=== PATIENT | male | born 1970 | race Caucasian/White ===

== ENCOUNTER 2018-12-10 20:37 | Emergency (ER) | payer MEDICAID, SELFPAY ==
[2018-12-10] VITALS (28 sets, daily range): BP systolic 111–129; BP diastolic 74–89; PULSE 73–101; RESP 10–30; TEMP 37; O2SAT 89–99
--- NOTE | 2018-12-10 20:57 | W.ED.GENAD ---
Discharge Plan Disposition Patient Disposition: AGAINST MEDICAL ADVICE Condition: Improving Discharge Details Chief Complaint: Chest/Rib Clinical Impression: Atypical chest pain, Syncope Primary Care Provider: Gabriele Quesada ED Provider: Alice Child Home Meds and New Rx's Prescriptions: Continued ibuprofen 600 MG tablet 600 mg PO QID PRN PRNQty: 30 RF: 0 acetaminophen [Tylenol] 325 MG tablet 3 tab PO PRNRF: 0 doxycycline hyclate [Doryx] 100 MG tablet,delayed release (DR/EC) 250 mg PO DIRECTED Qty: 14 RF: 0 Discharge Instructions Instructions: Chest Pain (ED), Syncope (ED) Additional Instructions: Call your primary care doctor on Wednesday to schedule a follow-up appointment for reevaluation and for referral for outpatient heart monitor and/or stress test. Drink plenty of fluids and get plenty of rest. Return immediately to the emergency department if you develop any worsening or new concerning symptoms. Discharge Data Discharge Physician: Alice Child Medical Decision Making 47-year-old male with a history of daily alcohol abuse who presents with left-sided chest pain and a syncopal episode that occurred after urination prior to arrival. Still complaining of some left-sided chest pain. Vitals within normal limits. EKG notes a rate of 82, sinus with no acute ST T wave ischemic changes. Patient has tenderness to palpation left anterior chest. He has a history of frequent exertional daily activity. With patient's history of syncope in the setting of chest pain, more concerning for an arrhythmia, however syncope post urination and musculoskeletal chest wall pain appears more clinically possible. Patient appears significantly intoxicated but is able to answer questions. We will do a cardiac work-up including d-dimer and chest x-ray and give a dose of Toradol and reassess. 2320 -- pt is asking to leave. Troponin negative. Alcohol 413. Chest x-ray negative. D-dimer 1147. Discussed that his results noted his d-dimer is elevated. He is now agreeable with plan for CT chest. 0010 --CT chest negative for PE but noted esophagitis. Discussed with patient that would recommend admission overnight for chest pain in setting of syncope but he is declining admission at this time. He does not want to stay for a second troponin either. He was advised of the risks of and disability due to a serious cardiac pathology and he understands the risks. He appears clinically sober in that he is able to repeat these risks back to me. His sister is present at bedside who will be taking patient home. Advised to follow-up with the primary care doctor this week for reevaluation and for referral for an outpatient cardiac monitor technician and/or stress test. Patient was encouraged to return here with any worsening or concerning symptoms. Medical Records Medical records reviewed: Yes I reviewed the patient's medical records. Imaging Data Radiologic Study: Radiologist's impression: XR Chest, 2 Views EXAM DATE/TIME: 12/10/2018 9:39 PM CLINICAL HISTORY: 47 years old, male; Chest pain; Additional info: R/O acute disease TECHNIQUE: Imaging protocol: XR of the chest, 2 views. COMPARISON: CT CHEST ABD PELVIS WITH CONTRAST 10/19/2017 9:29 PM FINDINGS: Lungs: Unremarkable. No consolidation. Pleural space: Unremarkable. No evidence of pneumothorax. Heart/Mediastinum: Unremarkable. Heart size within normal limits for technique. Bones/joints: Old right rib fracture deformities. IMPRESSION: No acute findings. Lab Data Lab results reviewed: Yes I reviewed the patient's lab results. ECG Data Attestation: I personally reviewed and interpreted this ECG (s) as follows: Interpretation: Rate of 82, sinus, no acute ST elevation or depression. TX 186. QTc 420. QRS 94. HPI General Mode of arrival: ambulatory. Date/Time Provider Initiated Documentation: 12/10/18 20:47. Limitations to Documentation: no limitations. Information obtained by: patient. HPI Narrative: Pt is a 47yo M with a history of daily alcohol abuse who presents with chest pain and syncopal episode prior to arrival. Patient states he was drinking alcohol with his friends carlos enrique when he was urinating outside and walked away and developed left-sided chest pain and then passed out. Patient states he remembers his friends been walking him to the car to bring him to the hospital. Patient arrives here with his sister. Patient states when he was walking back to the car with his friends his chest pain was still present. He states it is still currently present and minor but rates it as 7/10. He denies any radiation, arm pain or numbness, shortness of breath, nausea, vomiting or dizziness. Patient cannot state how much alcohol he had this evening but states it was a little. He states he is frequently doing work outside and lifting heavy objects every day. He denies any recent travel, recent surgery, leg pain or swelling. Related Data Home Medications Medication Instructions Recorded Confirmed ibuprofen 600 mg PO QID PRN PRN #30 tab 09/09/15 12/10/18 acetaminophen [Tylenol] 3 tab PO PRN 09/21/16 doxycycline hyclate [Doryx] 250 mg PO DIRECTED #14 tabcr 09/21/16 12/10/18 Previous Rx's Medication Instructions Recorded ibuprofen 600 mg PO QID PRN PRN #30 tab 09/09/15 doxycycline hyclate [Doryx] 250 mg PO DIRECTED #14 tabcr 09/21/16 Allergies Allergy/AdvReac Type Severity Reaction Status Date / Time No Known Allergies Allergy Unverified 12/10/18 20:56 General Stated Complaint: Chest/Rib SARAH: 2 Review of Systems Review of Systems All systems reviewed & are unremarkable except as noted in HPI and below Constitutional Reports as per HPI, Denies chills and Denies fever(s) Eyes Denies blurry vision ENT Denies dizziness, Denies sore throat and Denies throat swelling Cardiovascular Reports chest pain and Denies dyspnea Respiratory Denies cough and Denies dyspnea Gastrointestinal Denies abdominal pain, Denies diarrhea and Denies vomiting Genitourinary Denies hematuria and Denies dysuria Musculoskeletal Denies back pain and Denies numbness Integumentary/Breasts Denies lesions and Denies rash Neurologic Denies dizziness, Denies focal weakness and Denies numbness Allergic/Immunologic Denies throat swelling PFSH Medical History No significant past medical history (Acute) Surgical History No significant past surgical history (Acute) Social History Smoking/Tobacco Use Status: Never Alcohol Intake: current Alcohol Intake frequency: 3 or more drinks per day Drug use: Never Do you feel safe at home: Yes Do you feel safe in your relationship?: Yes Exam Const General: cooperative, healthy appearing and no acute distress HENMT Head: normal to inspection Face and sinus: normal facial exam Eyes General: appearance normal, both eyes and all related structures Pupils: PERRL EOM: EOM intact bilaterally Neck Neck: normal visual inspection and No submandibular swelling Lymphatic: no lymphadenopathy noted Chest Chest: normal inspection of the chest and tenderness Chest/axillae images: 1. Tenderness to palpation without evidence of edema, erythema or ecchymosis, lesions or rash. Resp Effort & Inspection: normal respiratory effort and able to speak in complete sentences Auscultation: clear to auscultation bilaterally Cardio Rate: regular rate Rhythm: regular rhythm GI Inspection: normal to inspection Palpation: soft, not firm, not rigid and nontender Auscultation: normal bowel sounds Male General Exam: Yes normal external exam Skin General skin exam: no rashes or lesions noted Neuro General: alert, awake and oriented x3 Cranial Nerves: CN's II-XI intact bilaterally Cognition: normal cognition Speech: speech normal Motor: muscle tone normal throughout and strength 5/5 throughout Sensory Exam: no sensory deficits noted Extrem General: normal to inspection, full ROM, normal capillary refill, no calf tenderness bilaterally and no edema Psych Appearance: grossly normal Mental Status: mental status grossly normal Speech and Movement: speech and movement normal Affect: normal affect Course Vital Signs Temperature 98.6 F 12/10/18 20:46 Pulse 84 12/10/18 20:46 Respiratory Rate 18 12/10/18 20:46 Pulse Oximetry 99 12/10/18 20:46 Temperature 98.6 F 12/10/18 20:46 Temperature Source Temporal Artery Scan 12/10/18 20:46 Pulse 84 12/10/18 20:46 Respiratory Rate 18 12/10/18 20:46 Blood Pressure Position Supine 12/10/18 20:46 Pulse Oximetry 99 12/10/18 20:46 Oxygen Delivery Method Room Air 12/10/18 20:46 Oxygen Flow Rate 0 12/10/18 20:46 Pain Level 10 12/10/18 20:46
--- NOTE | 2018-12-10 21:21 | DI.RAD_ITS ---
SYMPTOMS/DIAGNOSIS: CHEST PAIN, ? ACUTE DISEASE PA AND LATERAL CHEST: Comparison is made with August,. The heart size is normal. There are old right rib fractures. The lungs appear clear. No infiltrate, effusion or pneumothorax is seen. IMPRESSION: Old right rib fractures. No acute abnormality.
--- NOTE | 2018-12-10 22:00 | DI.VRAD_ITS ---
EXAM: XR Chest, 2 Views EXAM DATE/TIME: 12/10/2018 9:39 PM CLINICAL HISTORY: 47 years old, male; Chest pain; Additional info: R/O acute disease TECHNIQUE: Imaging protocol: XR of the chest, 2 views. COMPARISON: CT CHEST ABD PELVIS WITH CONTRAST 10/19/2017 9:29 PM FINDINGS: Lungs: Unremarkable. No consolidation. Pleural space: Unremarkable. No evidence of pneumothorax. Heart/Mediastinum: Unremarkable. Heart size within normal limits for technique. Bones/joints: Old right rib fracture deformities. IMPRESSION: No acute findings. Dictated and Authenticated by: Gabriele Turner MD. Ordering:APARNA Jenkins MD
[2018-12-10 22:20] LABS: ETHANOL BLOOD 413.1 mg/dL (<3)
[2018-12-10 22:21] LABS: ALT 92 U/L (16-63); AST 124 U/L (15-37); Absolute Basophil Count 0.06 k/cumm (0.0-0.2); Absolute Eosinophil Count 0.03 k/cumm (0.0-0.7); Absolute Lymphocyte Count 1.28 k/cumm (1.2-3.4); Absolute Monocyte Count 0.37 k/cumm (0.11-0.7); Absolute Neutrophil Count 1.43 k/cumm (1.2-6.7); Albumin 4.2 g/dL (3.4-5.0); Alkaline Phosphatase 59 U/L (46-116); Anion Gap 9.8 mmol/L (3-11); BUN 4 mg/dL (7-18); Basophils % 1.9; Bilirubin, Total 0.5 mg/dL (0.2-1.0); CO2 30.2 mmol/L (21.0-32.0); CREATININE 0.81 mg/dL (0.70-1.30); Calcium 8.2 mg/dL (8.5-10.1); Chloride 100 mmol/L (98-107); Eosinophils % 0.9; Glucose 104 mg/dL (70-100); HGB 15.2 g/dL (13.5-17.5); Lymphocytes % 40.4; Mean Corp. HGB Concentration 34.5 g/dL (32.0-36.0); Mean Corpuscular Hemoglobin 31.3 pg (27.0-33.0); Mean Corpuscular Volume 90.7 fL (80-95); Mean Platelet Volume 8.4 fL (8.0-11.0); Monocytes % 11.7; Neutrophils % 45.1; Platelet Count 170 x1000/uL (130-400); Potassium 3.9 mmol/L (3.5-5.1); RBC 4.85 m/cumm (4.50-6.00); RBC Distribution Width 12.4 % (11.8-14.1); Sodium 140 mmol/L (136-145); Total Protein 8.4 g/dL (6.4-8.2); White Blood Cell Count 3.17 k/cumm (4.4-10.8)
[2018-12-10 22:22] LABS: Troponin I < 0.05 ng/mL (0.00-0.06)
[2018-12-10] MEDS: Ketorolac 60 MG/2 ML VIAL IM (22:28)
[2018-12-10 22:52] LABS: D-Dimer 1147 ng/mlFEU (<500)
[2018-12-10 22:54] LABS: Diff Comment Diff Reviewed
[2018-12-10 22:56] LABS: RBC Morphology Normal
--- NOTE | 2018-12-10 23:26 | DI.CT_ITS ---
SYMPTOMS/DIAGNOSIS: LEFT ANTERIOR CHEST PAIN, ELEVATED D-DIMER, ? PE CHEST CT FOR PULMONARY EMBOLISM: CT angiography was performed with multi slice acquisition and multi planar and 3D reconstruction. There is no evidence of pulmonary emboli or aortic dissection. No pleural or pericardial effusions or pneumothorax are seen. The heart size is normal. There are old rib fractures. No acute fractures are identified. There is thickening of the distal esophagus. There is no evidence of perforation or gross evidence of a focal mass. The liver shows extreme fatty infiltration. IMPRESSION: Thickening of the distal esophagus consistent with esophagitis. No evidence of pulmonary emboli.
[2018-12-10] MEDS: Omnipaque 350 MG/ML 100 ML BTL IJ (23:56)
--- NOTE | 2018-12-11 00:02 | DI.VRAD_ITS ---
EXAM: CT Angiography Chest With Contrast EXAM DATE/TIME: 12/10/2018 11:27 PM CLINICAL HISTORY: 47 years old, male; Pain and abnormal findings; Abnormal diagnostic tests; Elevated d-dimer; Left-sided chest pain; Patient HX: Per PT: Left anterior chest pain; Elevated d dimer; Additional info: R/O pe TECHNIQUE: Imaging protocol: Computed tomographic angiography of the chest with intravenous contrast. 3D rendering: MIP reconstructed images were created and reviewed. COMPARISON: CT CHEST ABD PELVIS WITH CONTRAST 10/19/2017 9:29 PM FINDINGS: Pulmonary arteries: Unremarkable. No obvious pulmonary emboli. Aorta: Unremarkable. No aortic aneurysm. No aortic dissection. Lungs: Unremarkable. No consolidation. No masses. No suspicious nodules. Pleural space: Unremarkable. No pneumothorax. No pleural effusion. Heart: Unremarkable. No pericardial effusion. No obvious heart strain. Mediastinum: Wall thickening throughout the distal half of the esophagus. Liver: Liver is diffusely low-attenuation. Lymph nodes: Unremarkable. No enlarged lymph nodes. Bones/joints: Old rib fracture deformities. Soft tissues: Unremarkable. IMPRESSION: Esophagitis. Fatty liver. Dictated and Authenticated by: Gabriele Turner MD. Ordering:APARNA Jenkins MD
[2018-12-11 00:24] VITALS: BP 113/82; PULSE 82; RESP 15; O2SAT 98
== END 2018-12-11 00:18 | disposition left against medical advice (07) ==
PROVIDERS: Emergency Provider Physician Assistant; PCP Internal Medicine
DX: R07.89 Other chest pain (principal); R55 Syncope and collapse; R79.1 Abnormal coagulation profile; F10.220 Alcohol dependence with intoxication, uncomplicated; Y90.8 Blood alcohol level of 240 mg/100 ml or more; X50.0XXA Overexertion from strenuous movement or load, initial encounter
CPT/HCPCS: 36415; 71275; 80053; 93005; 96372; 99285; 71046; 80320; 83735; 84484; 85025; 85379; 93010; 99284; J1885; J3490

== ENCOUNTER 2018-12-19 01:12 | Outpatient (CLI) | payer MEDICAID, SELFPAY | END 2018-12-19 01:32 | PROVIDERS: PCP Internal Medicine; Visit Provider Internal Medicine | DX: R55 Syncope and collapse (principal) | CPT/HCPCS: 93225 ==

== ENCOUNTER 2018-12-21 14:11 | Outpatient (CLI) | payer MEDICAID, SELFPAY ==
--- NOTE | 2018-12-22 05:29 | HOLTER_ITS ---
HOLTER MONITOR DATE OF DICTATION December 21, 2018 STUDY INDICATION Syncope. REQUESTING PROVIDER Not available. FINDINGS The patient was monitored for 2 days and 1 hour. Baseline sinus rhythm. Average heart rate 90 beats per minute, range 68 to 152 beats per minute. No significant ectopy. 3 PVCs and 1 PACs. No VT or SVT. No pauses greater than 3 seconds. No higher degree heart block. No patient events. FINAL INTERPRETATION Normal study. Kris Haile M.D. MATT/leroy T - 12/22/2018
== END 2018-12-21 14:31 ==
PROVIDERS: PCP Internal Medicine; Visit Provider Internal Medicine
DX: R55 Syncope and collapse (principal)
CPT/HCPCS: 93226

== ENCOUNTER 2019-09-11 15:56 | Outpatient (REF) | payer MEDICAID, SELFPAY ==
[2019-09-12 23:57] LABS: COVID-19 RT-PCR Result NEGATIVE (Negative)
== END 2019-09-11 16:16 ==
LOC: NCHCN 15:56
PROVIDERS: PCP Internal Medicine; Visit Provider Nurse Practitioner Family
DX: J06.9 Acute upper respiratory infection, unspecified (principal)
CPT/HCPCS: U0003

== ENCOUNTER 2020-10-01 22:10 | Outpatient (REF) | payer MEDICAID, SELFPAY ==
[2020-10-01 22:02] LABS: HCT 33.4 % (40.0-50.0); HGB 10.3 g/dL (13.5-17.5); MCHC 30.8 % (32.0-36.0); MCV 74.7 fL (80-95); MPV 9.3 fL (8.0-11.0); Platelet Count 228 10^3/uL (130-400); RBC 4.47 10^6/uL (4.36-5.78); RDW 18.9 % (11.8-14.1); RDW-SD 51.1 fL; WBC 5.64 10^3/uL (4.4-10.8)
[2020-10-01 22:14] LABS: ALT 70 U/L (16-63); AST 79 U/L (15-37); Albumin 3.7 g/dL (3.4-5.0); Alkaline Phosphatase 88 U/L (46-116); Anion Gap 9.1 mmol/L (3-11); BUN 6 mg/dL (7-18); Bilirubin, Total 0.4 mg/dL (0.2-1.0); CO2 27.9 mmol/L (21.0-32.0); CREATININE 0.8 mg/dL (0.70-1.30); Calcium 8.9 mg/dL (8.5-10.1); Chloride 97 mmol/L (98-107); Glucose 95 mg/dL (74-106); Potassium 4.6 mmol/L (3.5-5.1); Sodium 134 mmol/L (136-145); Total Protein 8.2 g/dL (6.4-8.2)
[2020-10-01 22:34] LABS: Calculated LDL 85 mg/dL (<100); Cholesterol 164 mg/dL (<200); HDL Cholesterol 71 mg/dL (40-60); Triglyceride 42 mg/dL (<150)
== END 2020-10-01 22:11 | disposition home or self-care (01) ==
LOC: NCHCN 22:10
PROVIDERS: PCP Internal Medicine; Visit Provider Internal Medicine
DX: F10.10 Alcohol abuse, uncomplicated (principal); L71.9 Rosacea, unspecified; Z13.220 Encounter for screening for lipoid disorders
CPT/HCPCS: 80053; 80061; 85027; 85025

== ENCOUNTER 2020-10-07 18:23 | Outpatient (REF) | payer MEDICAID, SELFPAY ==
[2020-10-07 16:38] LABS: Iron 12 ug/dL (65-175); Total Iron Binding Capacity 392 ug/dL (250-450); Transferrin Sat 3 % (20-55)
[2020-10-07 16:57] LABS: Vitamin B12 603 pg/mL (193-986)
== END 2020-10-07 18:24 | disposition home or self-care (01) ==
LOC: NCHCN 18:23
PROVIDERS: PCP Internal Medicine; Visit Provider Internal Medicine
DX: D64.9 Anemia, unspecified (principal); R79.89 Other specified abnormal findings of blood chemistry
CPT/HCPCS: 82607; 83540; 83550

== ENCOUNTER 2020-11-18 03:21 | Outpatient (CLI) | payer MEDICAID, SELFPAY ==
[2020-11-18 13:53] LABS: Source Nasal/Nares
[2020-11-19 15:25] LABS: COVID-19 PCR Negative (Negative)
== END 2020-11-18 03:22 | disposition home or self-care (01) ==
PROVIDERS: PCP Family Medicine; Visit Provider Surgery
DX: Z20.822 Contact with and (suspected) exposure to COVID-19 (principal); Z01.818 Encounter for other preprocedural examination
CPT/HCPCS: 87635

== ENCOUNTER 2020-11-20 06:11 | Day surgery (SDC) | payer MEDICAID, SELFPAY | END 2020-11-20 06:12 | disposition home or self-care (01) | LOC: SUR 06:12 | PROVIDERS: PCP Family Medicine; Visit Provider Surgery | DX: Z53.9 Procedure and treatment not carried out, unspecified reason (principal) ==

== ENCOUNTER 2020-12-02 10:08 | Outpatient (REF) | payer MEDICAID, SELFPAY ==
[2020-12-02 15:24] LABS: HCT 39.9 % (40.0-50.0); HGB 12.8 g/dL (13.5-17.5); MCHC 32.1 % (32.0-36.0); MCV 80.9 fL (80-95); MPV 9.8 fL (8.0-11.0); Platelet Count 166 10^3/uL (130-400); RBC 4.93 10^6/uL (4.36-5.78); RDW-SD 59.3 fL; WBC 8.94 10^3/uL (4.4-10.8)
== END 2020-12-02 10:09 | disposition home or self-care (01) ==
LOC: NCHCN 10:08
PROVIDERS: PCP Family Medicine; Visit Provider Internal Medicine
DX: R19.5 Other fecal abnormalities (principal)
CPT/HCPCS: 85027

== ENCOUNTER 2021-02-25 12:00 | Outpatient (REF) | payer MEDICAID, SELFPAY ==
[2021-02-25 14:43] LABS: HCT 40.4 % (40.0-50.0); HGB 12.9 g/dL (13.5-17.5); MCH 26.8 pg (27.0-33.0); MCHC 31.9 % (32.0-36.0); MCV 83.8 fL (80-95); MPV 9.4 fL (8.0-11.0); Platelet Count 225 10^3/uL (130-400); RBC 4.82 10^6/uL (4.36-5.78); RDW 15.1 % (11.8-14.1); RDW-SD 46.3 fL; WBC 5.15 10^3/uL (4.4-10.8)
[2021-02-25 15:13] LABS: ALT 74 U/L (16-63); AST 97 U/L (15-37); Albumin 3.9 g/dL (3.4-5.0); Alkaline Phosphatase 82 U/L (46-116); Anion Gap 9.5 mmol/L (3-11); BUN 4 mg/dL (7-18); Bilirubin, Total 0.6 mg/dL (0.2-1.0); CO2 28.5 mmol/L (21.0-32.0); CREATININE 0.7 mg/dL (0.70-1.30); Calcium 9.1 mg/dL (8.5-10.1); Chloride 95 mmol/L (98-107); Ferritin 42 ng/mL (26-388); Glucose 91 mg/dL (74-106); Sodium 133 mmol/L (136-145); Total Protein 8.5 g/dL (6.4-8.2)
== END 2021-02-25 12:01 | disposition home or self-care (01) ==
LOC: NCHCN 12:00
PROVIDERS: PCP Family Medicine; Visit Provider Family Medicine
DX: D50.9 Iron deficiency anemia, unspecified (principal); R19.5 Other fecal abnormalities; F10.10 Alcohol abuse, uncomplicated
CPT/HCPCS: 80053; 85027; 82728

== ENCOUNTER 2021-05-24 13:47 | Emergency (ER) | payer MEDICAID, SELFPAY ==
[2021-05-24 13:49] VITALS: BP 131/98; PULSE 83; RESP 16; TEMP 36.6; O2SAT 100
--- NOTE | 2021-05-24 14:01 | DI.RAD_ITS ---
Exam(s) XR HAND LT COMPLETE EXAM: XR HAND LT COMPLETE CLINICAL HISTORY: distal digit laceration likely to the bone. TECHNIQUE: 2D digital imaging was performed of the left hand. Three views were obtained. AP, later al and oblique views were obtained. COMPARISON: No exams were available for comparison FINDINGS: BONES: No acute fracture is present. No bony destructive lesion is seen. JOINTS: No dislocation present. SOFT TISSUE: There is a soft tissue laceration at the anterior lateral aspect of the distal little fi nger. No radiopaque foreign body is seen. IMPRESSION: Soft tissue laceration at the distal aspect of the little finger. No radiopaque foreign body or frac ture. DATA REPOSITORY: RADIATION DOSE DELIVERED:
[2021-05-24] MEDS: Lidocaine 1% Multi-Dose 50 ML VIAL 10 ML IJ (14:17)
--- NOTE | 2021-05-24 14:21 | ED.GENADUL_ITS ---
Discharge Plan Disposition Patient Disposition: HOME Condition: Improving Discharge Details Clinical Impression: Laceration of finger of left hand Primary Care Provider: Dk Lopez ED Provider: Shine Macedo Home Meds and New Rx's Prescriptions: New cephalexin 500 mg capsule 500 mg PO QID 5 Days Qty: 20 0RF Continued pantoprazole 40 mg tablet,delayed release (DR/EC) 40 mg PO DAILY 0RF ferrous gluconate 324 mg (37.5 mg iron) tablet 324 mg PO BID 0RF Discharge Instructions Instructions: Finger Laceration (ED) Medical Decision Making 50-year-old male presented for sustaining lacerations to the fourth and fifth digit of left hand while using a table saw, gaping lacerations distal to the DIP joints, with likely exposed bone palmar aspect of fifth digit, slightly decreased sensation to light touch distal aspect of fifth digit however remaining neurovascular exam intact in all fingers, patient is up-to-date on tetanus shot, pain is controlled, no evidence of foreign body, soaking wound will anesthetize digits, will irrigate and explore wounds, primary closure with Vicryl sutures, patient to be given 1 g of Ancef IV and to be discharged on prophylactic antibiotic and given referral for specialty care follow-up. No evidence of active infection, no evidence of tendon disruption, no evidence of foreign body at this time. Home care instructions and return precautions to be given 15: 09 patient tolerated laceration repair, Ancef as completed, home care instructions and return precautions given. Will be given prophylactic Keflex. Patient will be provided orthopedic follow-up for wound check next week. HPI General Date/Time Provider Initiated Documentation: 05/24/21 14:01 . HPI Narrative: 50-year-old male presents after accidentally lacerating his left fourth and fifth digit with a table saw while building a table, hemostatic, no other injuries, patient endorsed that his tetanus shot is up-to-date Related Data Home Medications Medication Instructions Recorded Confirmed ferrous gluconate 324 mg (37.5 mg 324 mg PO BID tab 10/29/20 11/18/20 iron) tablet pantoprazole 40 mg tablet,delayed 40 mg PO DAILY 10/29/20 05/24/21 release cephalexin 500 mg capsule 500 mg PO QID 5 Days #20 cap 05/24/21 Previous Rx's Medication Instructions Recorded cephalexin 500 mg capsule 500 mg PO QID 5 Days #20 cap 05/24/21 Allergies Allergy/AdvReac Type Severity Reaction Status Date / Time No Known Allergies Allergy Unverified 05/24/21 13:54 General Stated Complaint: Laceration SARAH: 3 Review of Systems Narrative: Review of Systems Constitutional: negative Eyes: negative ENT: negative Cardiovascular: negative Respiratory: negative Gastrointestinal: negative : negative Musculoskeletal: negative Skin: finger lacerations Neurologic: negative Psych: negative PFSH All Active Problems (Updated 05/24/21 @ 15:21 by Shine Macedo MD) Laceration of finger of left hand (Acute) Elevated BP without diagnosis of hypertension (Acute) Acne rosacea (Acute) Alcohol abuse (Chronic) Elevated LFTs (Acute) Heme positive stool (Acute) Iron deficiency anemia (Acute) Esophagitis (Acute) Medical History (Updated 05/24/21 @ 15:21 by Shine Macedo MD) Syncope No recurrence per PCP on 01/03/19 Surgical History No significant past surgical history Social History Smoking/Tobacco Use Status: Never Smoking risk assessment performed?: Yes Alcohol Intake: current Alcohol Intake frequency: 3 or more drinks per day Details: drinks 12 Beers per night Drug use: Never Substance use type: does not use Do you feel safe at home: Yes Do you feel safe in your relationship?: Yes Exam Narrative Exam Narrative: Physical Examination General: alert, awake, cooperative, resting comfortably, no acute distress HEENT: normocephalic, atraumatic; PERRL, EOM intact, conjunctiva normal; no nasal discharge; moist mucous membranes, oral and pharyngeal mucosa normal, tolerating secretions Neck: supple, trachea midline; full ROM Chest: normal to inspection Respiratory: normal respiratory effort, speaking in full sentences, clear to auscultation, no wheezing, rales or rhonchi Cardiac: regular rate, regular rhythm, S1S2 intact, no murmurs rubs or gallops GI: abdomen soft, non-tender, non-distended; no palpable mass or hepatosplenomegaly Skin: Left hand: 1 cm mildly gaping laceration to palmar aspect of fourth digit distal to PIP joint, 2.5 cm gaping laceration distal aspect of digit palmar aspect with likely exposed bone Neuro: AAOx3, normal speech, moving all extremities Extremities: Lacerations noted as per skin section, flexion both proximally and distally in all fingers intact, extension intact, sensation to light touch distal to DIP joint on fifth digit decreased, sensation in proximal fifth digit intact, remaining sensory feels the median radial and ulnar nerve distribution intact, good capillary refill in all fingers, no apparent foreign body, does appear that laceration to fifth digit goes to bone Psych: Appropriate mood and affect Course Vital Signs Vital signs: Vital Signs Temperature 36.6 C 05/24/21 13:49 Pulse 83 05/24/21 13:49 Respiratory Rate 16 05/24/21 13:49 Blood Pressure 131/98 H 05/24/21 13:49 Pulse Oximetry 100 05/24/21 13:49 Temperature 36.6 C 05/24/21 13:49 Temperature Source Skin 05/24/21 13:49 Pulse 83 05/24/21 13:49 Respiratory Rate 16 05/24/21 13:49 Respiratory Effort 05/24/21 13:56 Blood Pressure 131/98 H 05/24/21 13:49 Pulse Oximetry 100 05/24/21 13:49 Oxygen Delivery Method Room Air 05/24/21 13:49 Oxygen Flow Rate 0 05/24/21 13:49
[2021-05-24] MEDS: ceFAZolin 1 GM/50 ML BAG IV (14:27)
[2021-05-24 15:13] VITALS: BP 122/92; PULSE 88; TEMP 36.5; O2SAT 99
--- NOTE | 2021-05-24 15:24 | DI.VRAD_ITS ---
PROCEDURE INFORMATION: Exam: XR Left Hand Exam date and time: 05/24/2021 2:20 PM Age: 50 years old Clinical indication: Injury or trauma; Other: Laceration 4th and 5th digits; Left; Ring finger and little finger TECHNIQUE: Imaging protocol: XR Left hand. Views: 3 or more views. COMPARISON: No relevant prior studies available. FINDINGS: Bones/joints: There is no evidence of acute fracture.There is no evidence of malalignment or dislocation. Soft tissues: Defects in the skin of the distal little finger consistent with laceration. IMPRESSION: 1. There is no evidence of acute fracture.There is no evidence of malalignment or dislocation. 2. Defects in the skin of the distal little finger consistent with laceration. Dictated and Authenticated by: Dulce Shipman MD. Ordering:CHASTITY Riojas MD
--- NOTE | 2021-05-24 15:40 | NUR.NOTE ---
patient's abx sent to [facility] and sister notified of this. patient also requested that ortho notify his sister for his f/u.
== END 2021-05-24 15:22 | disposition home or self-care (01) ==
PROVIDERS: Emergency Provider Emergency Medicine; PCP Family Medicine
DX: S61.215A Laceration without foreign body of left ring finger without damage to nail, initial encounter (principal); S61.217A Laceration without foreign body of left little finger without damage to nail, initial encounter; W27.0XXA Contact with workbench tool, initial encounter
CPT/HCPCS: 96365; 99284; 73130; 99283; J0690; J3490

== ENCOUNTER 2021-08-16 19:34 | Emergency (ER) | payer MEDICAID, SELFPAY ==
[2021-08-16] VITALS (27 sets, daily range): BP systolic 113–131; BP diastolic 77–99; PULSE 90–118; RESP 13–27; TEMP 37.1; O2SAT 95–99
--- NOTE | 2021-08-16 20:00 | RT.EKG_ITS ---
APPROVED REPORT Exam: Resting ECG Reason for Exam: paresthesias in legs Patient Location: E HR:95 bpm ECG Measurements Heart Rate 95 AXIS MN 190 P 64 QRSd 83 QRS -21 QT 342 T 48 QTc 432 Conclusion Sinus rhythm...normal P axis, V-rate 60- 99 Low voltage, extremity and precordial leads...extremity<0.5mV, precordial<1.0mV
[2021-08-16] MEDS: THIAMINE 100 MG in Normal Saline 100 ML 200 MG IVPB (20:40)
[2021-08-16 20:42] LABS: Abs Immature Grans 0.01 10^3/uL (0.0-0.06); Absolute Basophil Count 0.04 10^3/uL (0.0-0.2); Absolute Eosinophil Count 0.04 10^3/uL (0.0-0.7); Absolute Lymphocyte Count 1.28 10^3/uL (1.2-3.4); Absolute Monocyte Count 0.47 10^3/uL (0.1-0.8); Basophils % 0.9; Eosinophils % 0.9; HCT 37.5 % (40.0-50.0); HGB 12.5 g/dL (13.5-17.5); Immature Grans % 0.2; Lymphocytes % 30.3; MCH 27.5 pg (27.0-33.0); MCHC 33.3 % (32.0-36.0); MCV 82 fL (80-95); MPV 8.4 fL (8.0-11.0); Monocytes % 11.1; Neutrophils % 56.6; Platelet Count 201 10^3/uL (130-400); RBC 4.55 10^6/uL (4.36-5.78); RDW-SD 42.1 fL; WBC 4.22 10^3/uL (4.4-10.8)
--- NOTE | 2021-08-16 20:47 | ED.GENADUL_ITS ---
Discharge Plan Disposition Patient Disposition: AGAINST MEDICAL ADVICE Condition: Serious Discharge Details Clinical Impression: Alcohol intoxication, Wernicke's encephalopathy Primary Care Provider: Dk Lopez ED Provider: Jose F Marvin Home Meds and New Rx's Prescriptions: New thiamine HCl (vitamin B1) 100 mg tablet 100 mg PO BID Qty: 60 0RF No Action pantoprazole 40 mg tablet,delayed release (DR/EC) 40 mg PO DAILY ferrous gluconate 324 mg (37.5 mg iron) tablet 324 mg PO BID Discharge Instructions Instructions: Against Medical Advice (ED) Additional Instructions: You are leaving AGAINST MEDICAL ADVICE and may have life-threatening or lifestyle modifying disease that would go undiagnosed and untreated. Please return to the emergency department at any time. Please seek treatment for your alcoholism. Call your doctor. Follow-up with [facility]. Referrals: [facility] [Outside] Dk Lopez MD [Primary Care Provider] - Discharge Data Discharge Date/Time-TO BE ENTERED AT DEPARTURE: 08/16/21 22:25 Medical Decision Making 850 --50-year-old male with history of alcohol use disorder, here with difficulty ambulating after his legs gave out. No recent trauma. Patient is currently intoxicated. I am highly concerned for Warnicke's encephalopathy given his chronic heavy daily continuous alcohol use. Screening EKG was reviewed to assess for arrhythmia: Reviewed and interpreted by me, please see report, sinus rhythm 95 bpm, low voltage but no significant block or arrhythmia noted. Plan to treat with thiamine 500 mg IV. Consider electrolyte abnormalities we will check labs. Patient was counseled on alcohol use disorder. -- I had a discussion with the patient about my diagnostic/treatment plan. Patient declines plan and wishes to leave against medical advise. I reiterated my concerns to him and explained the risks of leaving prior to completion of workup and treatment. I specifically emphasized the possibility of life-t hreatening or lifestyle modifying disease that would not be appropriately treated if they leave. Patient verbalized understanding of my concerns and the potential for life threatening or lifestyle modifying disease. Patient has capacity to make informed decision. I again explained my concerns and urged the patient to stay for treatment as outlined. Patient continued to refuse. I recommended that the patient follow-up with primary care physician URMILA or return to the Emergency Department at any time for further treatment. Patient's was present and understood my concerns and recommendations as well. She agreed that was in a state to make informed decision. HPI General Mode of arrival: ambulatory . Date/Time Provider Initiated Documentation: 08/16/21 20:01 . Limitations to Documentation: no limitations . Information obtained by: patient . HPI Narrative: 60-year-old male with history of alcohol use disorder, here with chief complaint that his legs gave out. Patient chronically abuses alcohol. He wakes up in the morning and starts drinking and continues to drink the entire day until he goes to sleep. He has been drinking this way for over 25 years. Today he was outside and states that his legs gave out bilaterally and he fell to the ground. He notes he had weakness in his leg and had difficulty standing. Patient notes difficulty walking that has been ongoing for some time. His describes somewhat of a shuffling gait. At this time he denies numbness or weakness. He does state he gets intermittent numbness in his right hand that is a chronic issue. He denies headache. No visual changes. He denies chest pain or shortness of breath. No abdominal pain. Related Data Home Medications Medication Instructions Recorded Confirmed ferrous gluconate 324 mg (37.5 mg 324 mg PO BID 10/29/20 11/18/20 iron) tablet pantoprazole 40 mg tablet,delayed 40 mg PO DAILY 10/29/20 05/24/21 release thiamine HCl (vitamin B1) 100 mg 100 mg PO BID #60 tabs 08/16/21 tablet Previous Rx's Medication Instructions Recorded thiamine HCl (vitamin B1) 100 mg 100 mg PO BID #60 tabs 08/16/21 tablet Allergies Allergy/AdvReac Type Severity Reaction Status Date / Time No Known Allergies Allergy Unverified 08/16/21 19:50 General Stated Complaint: GenMedical SARAH: 3 Review of Systems All systems reviewed & are unremarkable except as noted in HPI and below Constitutional Constitutional: Denies fever(s) Respiratory Respiratory: Denies cough Neurologic Neurologic: Reports as per HPI PFSH All Active Problems (Updated 08/16/21 @ 22:14 by Jose F Marvin MD) Alcohol intoxication (Acute) Wernicke's encephalopathy (Acute) Elevated BP without diagnosis of hypertension (Acute) Acne rosacea (Acute) Alcohol abuse (Chronic) Elevated LFTs (Acute) Heme positive stool (Acute) Iron deficiency anemia (Acute) Esophagitis (Acute) Medical History Syncope No recurrence per PCP on 01/03/19 Surgical History No significant past surgical history Social History Smoking/Tobacco Use Status: Never Smoking risk assessment performed?: Yes Alcohol Intake: current Alcohol Intake frequency: 3 or more drinks per day Details: drinks 12 Beers per night Drug use: Never Substance use type: does not use Do you feel safe at home: Yes Do you feel safe in your relationship?: Yes Exam Const General: cooperative and no acute distress HENMT Head: normocephalic and atraumatic Mouth: moist mucous membranes Eyes EOM: EOM intact bilaterally Neck Neck: trachea midline Resp Auscultation: clear to auscultation bilaterally, no rales, no rhonchi and no wheezes Cardio Rate: regular rate and not tachycardic Rhythm: regular rhythm Heart Sounds: no gallops, no murmurs and no rubs GI Palpation: soft, not firm, no guarding, no masses, not rigid and nontender Skin General skin exam: no rashes or lesions noted Neuro General: patient alert, patient awake, patient oriented x3 and tone normal Cranial Nerves: PERRL, accommodation normal, facial strength normal and tongue midline Cognition: normal cognition Speech: other (slurred speech) Sensory Exam: no sensory deficits noted Coordination: Romberg test normal Extrem General: no edema Psych Appearance: grossly normal Mental Status: mental status grossly normal Course Vital Signs Vital signs: Vital Signs Temperature 37.1 C 08/16/21 19:47 Pulse 99 H 08/16/21 19:47 Respiratory Rate 14 08/16/21 19:47 Blood Pressure 131/92 H 08/16/21 19:47 Pulse Oximetry 98 08/16/21 19:47 Temperature 37.1 C 08/16/21 19:47 Temperature Source Skin 08/16/21 19:47 Pulse 99 H 08/16/21 19:47 Respiratory Rate 15 08/16/21 19:51 Respiratory Effort Non-Labored 08/16/21 19:51 Respiratory Depth Normal 08/16/21 19:51 Respiratory Pattern Normal 08/16/21 19:51 Blood Pressure 131/92 H 08/16/21 19:47 Blood Pressure Position Supine 08/16/21 19:47 Pulse Oximetry 98 08/16/21 19:47 Oxygen Delivery Method Room Air 08/16/21 19:47 Oxygen Flow Rate 0 08/16/21 19:47 Pain Level 0 08/16/21 19:47 PAWSS Have you Been Recently Intoxicated or Drunk Within the Last 30 days?: Yes Have you Ever Experienced Previous Episodes of Alcohol Withdrawal?: No Have you ever Experienced Withdrawal Seizures?: No Have you ever Experienced Delirium Tremens(DT)s?: No Have you ever undergone Alcohol Rehabilitation Treatment (i.e, inpt ot outpatient treatment programs)?: Yes Have you ever Experienced Blackouts?: No Have you ever Combined Alcohol with other Downers within the last 90 days?: No Have you ever Combined Alcohol with any other Substance of Abuse during the last 90 days?: No Positive Blood Alcohol level on Presentation? [PCS.BAL]: No Evidence of Increased Autonomic Activity (i.e. HR>120, tremor, sweating, agitation, nausea)?: No Result: 2
[2021-08-16 20:54] LABS: Absolute Neutrophil Count 2.39 10^3/uL (1.2-6.7)
[2021-08-16 21:01] LABS: ALT 64 U/L (16-63); AST 86 U/L (15-37); Albumin 3.6 g/dL (3.4-5.0); Alkaline Phosphatase 77 U/L (46-116); BUN 2 mg/dL (7-18); Bilirubin, Total 0.5 mg/dL (0.2-1.0); CREATININE 0.8 mg/dL (0.70-1.30); Chloride 90 mmol/L (98-107); Glucose 100 mg/dL (74-106); Total Protein 8.3 g/dL (6.4-8.2)
[2021-08-16 21:10] LABS: ETHANOL BLOOD 360.6 mg/dL (<10)
[2021-08-16 21:11] LABS: Sodium 127 mmol/L (136-145)
== END 2021-08-16 22:25 | disposition left against medical advice (07) ==
PROVIDERS: Emergency Provider Student in an Organized Health Care Education/Training Program; PCP Family Medicine
DX: F10.129 Alcohol abuse with intoxication, unspecified (principal); E51.2 Wernicke's encephalopathy; Y90.8 Blood alcohol level of 240 mg/100 ml or more; Z53.29 Procedure and treatment not carried out because of patient's decision for other reasons; R20.2 Paresthesia of skin
CPT/HCPCS: 36416; 80053; 82962; 93005; 96365; 99284; 80320; 83735; 85025; 93010

== ENCOUNTER 2022-05-19 16:21 | Outpatient (REF) | payer MEDICAID, SELFPAY ==
[2022-05-19 15:34] LABS: HCT 41.5 % (40.0-50.0); HGB 13.6 g/dL (13.5-17.5); MCHC 32.8 % (32.0-36.0); MCV 83 fL (80-95); MPV 9.1 fL (8.0-11.0); Platelet Count 194 10^3/uL (130-400); RBC 5.03 10^6/uL (4.36-5.78); RDW 13.5 % (11.8-14.1); RDW-SD 40.6 fL
[2022-05-19 15:39] LABS: Prothrombin Time 10.6 sec (9.3-11.0)
[2022-05-19 15:48] LABS: ALT 88 U/L (16-63); AST 160 U/L (15-37); Albumin 3.8 g/dL (3.4-5.0); Alkaline Phosphatase 83 U/L (46-116); Anion Gap 7.1 mmol/L (3-11); BUN 5 mg/dL (7-18); Bilirubin, Total 0.4 mg/dL (0.2-1.0); CO2 29.9 mmol/L (21.0-32.0); CREATININE 0.7 mg/dL (0.70-1.30); Calcium 9.1 mg/dL (8.5-10.1); Chloride 94 mmol/L (98-107); Estimated GFR 111.56 (mL/min/1.73m2); Glucose 95 mg/dL (74-106); Potassium 4.4 mmol/L (3.5-5.1); Sodium 131 mmol/L (136-145); Total Protein 8.2 g/dL (6.4-8.2)
== END 2022-05-19 16:22 | disposition home or self-care (01) ==
LOC: NCHCN 16:21
PROVIDERS: PCP Family Medicine; Visit Provider Family Medicine
DX: F10.10 Alcohol abuse, uncomplicated (principal); D50.9 Iron deficiency anemia, unspecified; R79.89 Other specified abnormal findings of blood chemistry
CPT/HCPCS: 80053; 85027; 85610

== ENCOUNTER 2024-03-15 11:44 | Outpatient (REF) | payer MEDICAID, SELFPAY | END 2024-03-15 11:45 | disposition home or self-care (01) | LOC: NCHCN 11:44 | PROVIDERS: PCP Family Medicine; Visit Provider Family Medicine | DX: F10.10 Alcohol abuse, uncomplicated (principal); D50.9 Iron deficiency anemia, unspecified | CPT/HCPCS: 80053; 82728; 83540; 83550; 85025 ==

== ENCOUNTER 2025-04-04 15:15 | Outpatient (REF) | payer MEDICAID, SELFPAY ==
[2025-04-04 18:09] LABS: HCT 39.9 % (40.0-50.0); HGB 13.7 g/dL (13.5-17.5); MCH 29.3 pg (27.0-33.0); MCHC 34.3 % (32.0-36.0); MCV 85 fL (80-95); MPV 9.0 fL (8.0-11.0); Platelet Count 212 10^3/uL (130-400); RBC 4.68 10^6/uL (4.36-5.78); RDW 12.7 % (11.8-14.1); RDW-SD 39.4 fL; WBC 4.93 10^3/uL (4.4-10.8)
[2025-04-04 18:34] LABS: ALT 39 U/L (10-49); AST 79 U/L (<34); Albumin 4.3 g/dL (3.2-5.0); Alkaline Phosphatase 67 U/L (46-116); Anion Gap 9.3 mmol/L (3-11); BUN 5 mg/dL (9-23); Bilirubin, Total 0.5 mg/dL (0.2-1.2); CO2 27.1 mmol/L (20.0-31.0); Calcium 8.9 mg/dL (8.3-10.6); Chloride 96 mmol/L (98-107); Glucose 91 mg/dL (74-106); Potassium 4.2 mmol/L (3.5-5.1); Sodium 132 mmol/L (136-145); Total Protein 7.8 g/dL (5.7-8.2)
== END 2025-04-04 15:16 | disposition home or self-care (01) ==
LOC: NCHCN 15:15
PROVIDERS: PCP Family Medicine; Visit Provider Family Medicine
DX: Z00.00 Encounter for general adult medical examination without abnormal findings (principal)
CPT/HCPCS: 80053; 85027